=== PATIENT | female | born 1960 | race Caucasian/White ===

== ENCOUNTER 2017-10-10 12:22 | Emergency (ER) | payer OTHER, MEDICAID ==
--- NOTE | 2017-10-10 12:27 | ER Document Report ---
ED General - General Mode of Arrival: Ambulatory Information source: Patient <EULOGIO WHITMORE - Last Filed: 10/10/17 13:29> <YANNICK COOPER - Last Filed: 10/10/17 16:07> - General Stated Complaint: POSSIBLE SEIZURE Time Seen by Provider: 10/10/17 12:23 Notes: Patient is a 57 year old female with asthma, depression, sleep apnea presents to the emergency department via EMS complaining of a possible seizure. Patient states she was at a homeless [place] receiving food when there was too many people around her and she began to seize. She states she normally has seizures when she is stressed or hot further reporting her last seizure to be approximately 3 months ago when she was packing up to move to [place]. Patient denies any trouble breathing, nausea, vomiting or abdominal pain. EMS deny a postictal phase. Patient does not know her medications and is not on any treatments for nausea or her sleep apnea. (MYRANDAEULOGIO) - Related Data Allergies/Adverse Reactions: Penicillins Allergy (Verified 10/10/17 12:50) Past Medical History - General Information source: Patient, Emergency Med Personnel - Social History Smoking Status: Never Smoker Cigarette use (# per day): No Chew tobacco use (# tins/day): No Smoking Education Provided: No Frequency of alcohol use: None Family History: Reviewed & Not Pertinent Pulmonary Medical History: Reports: Hx Asthma, Hx Sleep Apnea Neurological Medical History: Reports: Hx Seizures Psychiatric Medical History: Reports: Hx Depression <EULOGIO WHITMORE - Last Filed: 10/10/17 13:29> Review of Systems - Review of Systems Constitutional: No symptoms reported EENT: No symptoms reported Cardiovascular: No symptoms reported Respiratory: No symptoms reported Gastrointestinal: No symptoms reported Genitourinary: No symptoms reported Female Genitourinary: No symptoms reported Musculoskeletal: No symptoms reported Skin: No symptoms reported Hematologic/Lymphatic: No symptoms reported Neurological/Psychological: See HPI, Seizure -: Yes All other systems reviewed and negative <EULOGIO WHITMORE - Last Filed: 10/10/17 13:29> Physical Exam <EULOGIO WHITMORE - Last Filed: 10/10/17 13:29> <YANNICK COOPER - Last Filed: 10/10/17 16:07> - Vital signs Vitals: Temp Pulse Resp BP Pulse Ox 97.8 F 85 17 132/81 H 94 10/10/17 12:22 10/10/17 12:22 10/10/17 12:22 10/10/17 12:22 10/10/17 12:22 - Notes Notes: GENERAL: Alert, interacts well. No acute distress. HEAD: Normocephalic, atraumatic. EYES: Pupils equal, round, and reactive to light. Extraocular movements intact. ENT: Oral mucosa moist, tongue midline. NECK: Full range of motion. Supple. Trachea midline. LUNGS: Clear to auscultation bilaterally, no wheezes, rales, or rhonchi. No respiratory distress. HEART: Regular rate and rhythm. No murmurs, gallops, or rubs. ABDOMEN: Soft, non-tender. Obese. Non-distended. Bowel sounds present in all 4 quadrants. EXTREMITIES: Moves all 4 extremities spontaneously. Radial pulses normal. NEUROLOGICAL: Alert and oriented x3. PSYCH: Infantile behavior and speech. SKIN: Warm, dry, normal turgor. No rashes or lesions noted. (EULOGIO WHITMORE) Course - Laboratory Result Diagrams: 10/10/17 12:40 10/10/17 12:40 <EULOGIO WHITMORE - Last Filed: 10/10/17 13:29> - Laboratory Result Diagrams: 10/10/17 12:40 10/10/17 12:40 <YANNICK COOPER - Last Filed: 10/10/17 16:07> - Vital Signs Vital signs: Temp Pulse Resp BP Pulse Ox 97.7 F 85 25 H 123/80 96 10/10/17 15:42 10/10/17 12:22 10/10/17 15:25 10/10/17 15:25 10/10/17 15:25 - Laboratory Laboratory results interpreted by me: 10/10/17 10/10/17 10/10/17 12:40 12:40 12:50 RDW 18.1 H Plt Count 464 H Creatine Kinase 23 L Urine Nitrite POSITIVE H Ur Leukocyte Esterase MODERATE H 10/10/17 14:43 RDW Plt Count Creatine Kinase Urine Nitrite POSITIVE H Ur Leukocyte Esterase TRACE H Discharge <EULOGIO WHITMORE - Last Filed: 10/10/17 13:29> <YANNICK COOPER - Last Filed: 10/10/17 16:07> - Discharge Clinical Impression: Seizure-like activity Urinary tract infection Qualifiers: Urinary tract infection type: site unspecified Hematuria presence: without hematuria Qualified Code(s): N39.0 - Urinary tract infection, site not specified Condition: Stable Disposition: HOME, SELF-CARE Additional Instructions: Urinary Tract Infection: Your evaluation indicates that you have a urinary tract infection. This is due to germs growing in the bladder. This is a common problem. This infection usually responds quickly to antibiotics. Your antibiotic should be taken exactly as prescribed. Drink plenty of fluids -- three to four quarts a day. Occasionally, a bladder anesthetic will be prescribed to help stop the feeling of urgency until the antibiotic has a chance to clear the infection. This may cause your urine to be dark orange. Certain urine infections require a culture. If the doctor obtained a culture, the results will be back in two days. You should call to see if a change in treatment is needed. A repeat urinalysis after you finish treatment is often recommended. The physician will let you know if further testing is required. Call the doctor if you develop fever, chills, flank pain, inability to urinate, or blood in the urine. You have had an episode of stress-induced seizure-like activity similar to what you had in the past. Your evaluation in the emergency room does show that you have a urinary tract infection. You should take the antibiotics as prescribed and drink plenty of fluids. Rest and try to avoid stressful situations. Follow-up with your doctor Friday if not feeling back to normal. RETURN TO THE EMERGENCY ROOM IF ANY NEW OR WORSENING SYMPTOMS. Prescriptions: Sulfamethoxazole/Trimethoprim [Septra-Ds 800-160 mg Tablet] 1 tab PO BID #10 tablet Scribe Attestation: 08/24/18 15:29 I personally performed the services described in the documentation, reviewed and edited the documentation which was dictated to the scribe in my presence, and it accurately records my words and actions. (YANNICK COOPER) Scribe Documentation - Scribe Written by Dwight:: Dwight Keller, 10/10/2017 12:35 acting as scribe for :: Zelalem <EULOGIO WHITMORE - Last Filed: 10/10/17 13:29>
[2017-10-10 12:51] LABS: ABSOLUTE BASOPHILS # (AUTO) 0.1 10^3/uL (0.0-0.2); ABSOLUTE LYMPHOCYTES (AUTO) 1.8 10^3/uL (0.5-4.7); ABSOLUTE MONOCYTES (AUTO) 0.4 10^3/uL (0.1-1.4); ABSOLUTE NEUT (AUTO) 7.8 10^3/uL (1.7-8.2); BASOPHILS % (AUTO) 0.7 % (0-2); EOSINOPHILS % (AUTO) 0.1 % (0-6); HEMATOCRIT 42.8 % (36.0-47.0); HEMOGLOBIN 14.3 g/dL (12.0-15.5); LYMPHOCYTES % (AUTO) 18.2 % (13-45); MEAN CORPUSCULAR HEMOGLOBIN 28.3 pg (27.0-33.4); MEAN CORPUSCULAR HGB CONC 33.4 g/dL (32.0-36.0); MEAN CORPUSCULAR VOLUME 85 fl (80-97); MONOCYTES % (AUTO) 3.7 % (3-13); PLATELET COUNT 464 10^3/uL (150-450); RED BLOOD COUNT 5.06 10^6/uL (3.72-5.28); RED CELL DISTRIBUTION WIDTH 18.1 % (11.5-14.0); SEGMENTED NEUTROPHILS % (AUTO) 77.3 % (42-78); TOTAL CELLS COUNTED % (AUTO) 100 %
--- NOTE | 2017-10-10 13:11 | RADIOLOGY REPORT (SQ) ---
EXAM DESCRIPTION: CHEST SINGLE VIEW COMPLETED DATE/TIME: 10/10/2017 12:59 pm REASON FOR STUDY: seizure COMPARISON: None. EXAM PARAMETERS: NUMBER OF VIEWS: One view. TECHNIQUE: Single frontal radiographic view of the chest acquired. RADIATION DOSE: NA LIMITATIONS: None. FINDINGS: LUNGS AND PLEURA: Low lung volumes. No infiltrate or effusion. MEDIASTINUM AND HILAR STRUCTURES: No masses. Contour normal. HEART AND VASCULAR STRUCTURES: The heart size is borderline. Accentuated by relatively low lung volu mes. BONES: No acute findings. HARDWARE: None in the chest. OTHER: No other significant finding. IMPRESSION: Borderline cardiomegaly. TECHNICAL DOCUMENTATION: JOB ID: [id number] [employer]- All Rights Reserved Reading location - IP/workstation name: [email or web address]
[2017-10-10 13:14] LABS: ALANINE AMINOTRANSFERASE 20 U/L (9-52); ALKALINE PHOSPHATASE 100 U/L (38-126); ANION GAP 14 (5-19); ASPARTATE AMINO TRANSFERASE 14 U/L (14-36); BILIRUBIN,DIRECT 0.3 mg/dL (0.0-0.4); BILIRUBIN,TOTAL 0.5 mg/dL (0.2-1.3); BLOOD UREA NITROGEN 11 mg/dL (7-20); CALCIUM 10.1 mg/dL (8.4-10.2); CARBON DIOXIDE 26 mmol/L (22-30); CHLORIDE 104 mmol/L (98-107); CREATINE KINASE 23 U/L (30-135); GLUCOSE 99 mg/dL (75-110); POTASSIUM 4.5 mmol/L (3.6-5.0); SODIUM 143.8 mmol/L (137-145); TOTAL PROTEIN 6.6 g/dL (6.3-8.2)
[2017-10-10 13:27] LABS: AMORPHOUS SEDIMENT,URINE TRACE /HPF; APPEARANCE,URINE CLOUDY; BILIRUBIN,URINE NEGATIVE (NEGATIVE); COLOR,URINE YELLOW; GLUCOSE, URINE NEGATIVE (NEGATIVE); KETONES,URINE NEGATIVE (NEGATIVE); LEUKOCYTE ESTERASE,URINE MODERATE (NEGATIVE); NITRITE,URINE POSITIVE (NEGATIVE); PROTEIN,URINE NEGATIVE (NEGATIVE); UROBILINOGEN,URINE NEGATIVE mg/dL (<2.0)
[2017-10-10 15:10] LABS: APPEARANCE,URINE SLIGHTLY-CLOUDY; BILIRUBIN,URINE NEGATIVE (NEGATIVE); COLOR,URINE YELLOW; GLUCOSE, URINE NEGATIVE (NEGATIVE); KETONES,URINE NEGATIVE (NEGATIVE); LEUKOCYTE ESTERASE,URINE TRACE (NEGATIVE); NITRITE,URINE POSITIVE (NEGATIVE); PROTEIN,URINE NEGATIVE (NEGATIVE); UROBILINOGEN,URINE NEGATIVE mg/dL (<2.0)
[2017-10-10 15:31] VITALS: BP 123/80
--- NOTE | 2017-10-13 10:35 | EKG REPORT ---
SEVERITY:- BORDERLINE ECG - SINUS RHYTHM BORDERLINE T ABNORMALITIES, ANT-LAT LEADS : Confirmed on behalf of: Melanie Evans 13-Oct-2017 10:35:24
== END 2017-10-10 15:42 | disposition home or self-care (01) ==
LOC: ER 12:22
DX: R29.818 Other symptoms and signs involving the nervous system (principal); N39.0 Urinary tract infection, site not specified; J45.909 Unspecified asthma, uncomplicated; Z88.0 Allergy status to penicillin
CPT/HCPCS: 36415; 51701; 71045; 80053; 81001; 82550; 85025; 87086; 87088; 87186; 93005; 93010; 99284

== ENCOUNTER 2018-10-23 16:00 | Emergency (ER) | payer MEDICARE, MEDICAID ==
[2018-10-23] MEDS ORDERED: TETANUS/DIPHTHERIA TOX-ADULT 0.5 ML SYR (>=7YO) IM ONE (16:28)
[2018-10-23] MEDS ORDERED: LIDOCAINE 1% INJ-PF (10 MG/ML) 30 ML SDV INJ ONE (16:29)
--- NOTE | 2018-10-23 16:47 | ER Document Report ---
ED Fall - General Chief Complaint: Fall Stated Complaint: FALL Primary Care Provider: JUAN WREN FNP-C [Primary Care Provider] - Follow up as needed - HPI Patient complains to provider of: Headache and scalp laceration. She also claims to have weakness in her leg Occurred: Just prior to arrival Where: Home, Indoors Context: Slipped Associated symptoms: denies: None, Lost consciousness, Dazed/confused, Seizure, Difficulty breathing, Difficulty walking, Became dizzy/fainted, Blood in stool, Other Location of injury/pain: Head. No: Abdomen, Ankle, Back, Breast, Buttocks, Chest, Elbow, Epigastric, Face, Finger, Flank, Foot, Hand, Hip, Mouth, Knee, Neck, Pelvic, Penis, Perineum, Rectum, Shoulder, Testicle, Thigh, Throat, Trunk, Vagina, Wrist, Upper extremity, Lower extremity, Other Quality of pain: Achy. denies: No pain, Burning, Cramping, Dull, Fullness, Pressure, Sharp, Stabbing, Throbbing, Other Severity: Mild Pain Level: 1 Prehospital interventions: No: C-collar, Backboard, PIOTR, IV, IO, BVM, Pb airway, Nasal airway, Oral airway, Intubation, Needle decompression, Splints, Wound care, Analgesia, Cardiac medications, CPR, Defibrillation, Other - Related data Allergies/Adverse Reactions: Penicillins Allergy (Verified 10/10/17 12:50) Past Medical History - Social History Smoking Status: Unknown if Ever Smoked Family History: Reviewed & Not Pertinent Patient has suicidal ideation: No Patient has homicidal ideation: No - Past Medical History Cardiac Medical History: Reports: Hx Hypertension Pulmonary Medical History: Reports: Hx Asthma, Hx Sleep Apnea Neurological Medical History: Reports: Hx Seizures Renal/ Medical History: Denies: Hx Peritoneal Dialysis Psychiatric Medical History: Reports: Hx Depression Review of Systems - Review of Systems Constitutional: No symptoms reported EENT: No symptoms reported Cardiovascular: No symptoms reported Respiratory: No symptoms reported Gastrointestinal: No symptoms reported Genitourinary: No symptoms reported Musculoskeletal: denies: No symptoms reported, See HPI, Back pain, Gout, Joint pain, Joint swelling, Muscle pain, Muscle stiffness, Neck pain, Deformity, Leg swelling, Ankle swelling, Other Skin: See HPI Neurological/Psychological: Headaches. denies: No symptoms reported, See HPI, Confusion, Dementia, Depression, Hallucinations, Anxiety, Homicidal ideation, Sensory change, Weakness, Gait changes, Loss of power, Paralysis, Seizure, Lost consciousness, Speech impairment, Numbness, Suicidal ideation, Tingling, Tremor, Other Physical Exam - Vital signs Vitals: Temp Pulse Resp BP Pulse Ox 97.4 F 88 16 146/84 H 96 10/23/18 16:15 10/23/18 16:15 10/23/18 16:15 10/23/18 16:15 10/23/18 16:15 Notes: PHYSICAL EXAMINATION: GENERAL: Well-appearing, well-nourished and in no acute distress. HEAD: l 1 cm linear laceration posterior scalp with surrounding scalp hematoma. Normocephalic. EYES: Pupils equal round and reactive to light, extraocular movements intact, sclera anicteric, conjunctiva are normal. ENT: nares patent, oropharynx clear without exudates. Moist mucous membranes. NECK: Normal range of motion, supple without lymphadenopathy no cervical thoracic lumbar or sacral spinous tenderness LUNGS: Breath sounds clear to auscultation bilaterally and equal. No wheezes rales or rhonchi. HEART: Regular rate and rhythm without murmurs ABDOMEN: Soft, nontender, normoactive bowel sounds. No guarding, no rebound. No masses appreciated. EXTREMITIES: Normal range of motion, no pitting or edema. No cyanosis. No pain to palpation on the extremities with full range of motion and normal musculoskeletal NEUROLOGICAL: No focal neurological deficits. Moves all extremities spon taneously and on command. PSYCH: Normal mood, normal affect. SKIN: Warm, Dry, normal turgor, no rashes or lesions noted. Course - Vital Signs Vital signs: Temp Pulse Resp BP Pulse Ox 97.4 F 88 16 146/84 H 96 10/23/18 16:15 10/23/18 16:15 10/23/18 16:15 10/23/18 16:15 10/23/18 16:15 - Diagnostic Test Radiology reviewed: Image reviewed, Reports reviewed Procedures - Laceration/Wound Repair Head Wound length (cm): 1.0 Wound's Depth, Shape: Linear Laceration pre-procedure: Sterile PPE donned, Betadine prep applied, Sterile drapes applied Anesthetic type: Other - patient declined Wound explored: Clean Irrigated w/ Saline (mLs): 10 Wound Repaired With: Talita - x3 Number of Sutures: 3 Layer Closure?: Yes - one Post-procedure wound care: Sterile dressing applied Discharge - Discharge Clinical Impression: Concussion, Scalp laceration Condition: Good Disposition: HOME, SELF-CARE Instructions: Antibiotic Ointment Protection ([facility]), Laceration Care ([facility]), Soap Cleansing ([facility]) Additional Instructions: Return if vomiting fever or having pus drainage from the wound mental status changes or condition worsens. Talita need to come out in 7 days at your doctor's office or back in the ER. Referrals: JUAN WREN, [employer]-[facility] [Primary Care Provider] - Follow up as needed
--- NOTE | 2018-10-23 16:55 | RADIOLOGY REPORT (SQ) ---
EXAM DESCRIPTION: CT HEAD WITHOUT COMPLETED DATE/TIME: 10/23/2018 4:41 pm REASON FOR STUDY: head injury COMPARISON: None. TECHNIQUE: Axial images acquired through the brain without intravenous contrast. Images reviewed wi th bone, brain and subdural windows. Additional sagittal and coronal reconstructions were generated. Images stored on PACS. All CT scanners at this facility use dose modulation, iterative reconstruction, and/or weight based d osing when appropriate to reduce radiation dose to as low as reasonably achievable (ALARA). [facility]: Dose Right [facility]: CareDose [facility]: Dose Right [facility]: Teradose 4D [facility]: Smart [employer] RADIATION DOSE: CT Rad equipment meets quality standard of care and radiation dose reduction techniq ues were employed. CTDIvol: 53.2 mGy. DLP: 1044 mGy-cm. mGy. LIMITATIONS: None. FINDINGS: VENTRICLES: Normal size and contour. CEREBRUM: No masses. No hemorrhage. No midline shift. No evidence for acute infarction. Few scatte red areas of low density in the white matter most likely chronic small vessel ischemic changes. CEREBELLUM: No masses. No hemorrhage. No alteration of density. No evidence for acute infarction. EXTRAAXIAL SPACES: No fluid collections. No masses. ORBITS AND GLOBE: No intra- or extraconal masses. Normal contour of globe without masses. CALVARIUM: No fracture. There are changes in the lateral wall of the right maxillary sinus suggestiv e of fibrous dysplasia. PARANASAL SINUSES: No fluid or mucosal thickening. SOFT TISSUES: No mass or hematoma. OTHER: No other significant finding. IMPRESSION: MILD CHRONIC MICROVASCULAR ISCHEMIA. NO ACUTE IMAGING FINDINGS IN THE BRAIN. 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 EVIDENCE OF ACUTE STROKE: NO. COMMENT: Quality ID # [id number]: Final reports with documentation of one or more dose reduction techniques (e.g., Automated exposure control, adjustment of the mA and/or kV according to patient size, use of iterative reconstruction technique) TECHNICAL DOCUMENTATION: JOB ID: [id number] [employer]- All Rights Reserved Reading location - IP/workstation name: [email or web address]
[2018-10-23 18:45] VITALS: BP 153/92
== END 2018-10-23 18:45 | disposition home or self-care (01) ==
LOC: ER 16:00
DX: S01.01XA Laceration without foreign body of scalp, initial encounter (principal); S06.0X9A Concussion with loss of consciousness of unspecified duration, initial encounter; W01.0XXA Fall on same level from slipping, tripping and stumbling without subsequent striking against object, initial encounter; Y92.009 Unspecified place in unspecified non-institutional (private) residence as the place of occurrence of the external cause; Z88.0 Allergy status to penicillin; Z23 Encounter for immunization
CPT/HCPCS: 70450; 90471; 90714; 99283

== ENCOUNTER 2020-01-19 08:07 | Day surgery (SDC) | payer MEDICARE, MEDICAID ==
[2020-01-19 09:30] LABS: INTERNATIONAL RATION (INR) 0.99; PROTHROMBIN TIME 13.3 SEC (11.4-15.4)
[2020-01-19 09:31] LABS: PARTIAL THROMBOPLASTIN TIME 31.9 SEC (23.5-35.8)
[2020-01-19 12:09] LABS: APPEARANCE ALL TUBES CLEAR; COLOR ALL TUBES COLORLESS; CSF TUBE NUMBER 3; VOLUME TUBE 1 1.9 CC; VOLUME TUBE 3 1.9 CC; VOLUME TUBE 4 2.2 CC
[2020-01-19 12:18] LABS: RED BLOOD CELL,CSF 0 /uL (0-10)
[2020-01-19 12:19] LABS: WHITE BLOOD CELL,CSF 2 /uL (0-5)
--- NOTE | 2020-01-19 13:05 | RADIOLOGY REPORT (SQ) ---
EXAM DESCRIPTION: LUMBAR PUNCTURE IMAGES COMPLETED DATE/TIME: 01/19/2020 10:38 am REASON FOR STUDY: BENIGN INTRACRANIAL HYPERTENSION G93.2 BENIGN INTRACRANIAL HYPERTENSION Z79.01 L MALOU TERM (CURRENT) USE OF ANTICOAGULANTS COMPARISON: None. FLUOROSCOPY TIME: 32 seconds 2 images saved to PACS. TECHNIQUE: Fluoroscopic guided lumbar puncture. LIMITATIONS: None. PROCEDURE: After written consent and assessment were obtained, the patient was brought into the fluo roscopy room and placed prone on the table. The patient's lower back was prepped in a sterile fashio n and an entry site was selected under live fluoroscopic guidance. The entry site was anesthetized wi th 1% lidocaine. A 20 gauge 15 cm needle was advanced through the skin and into the thecal sac at the level of L2-L3. An opening pressure was taken, which measured 29 cm of water. After approximately 8.5 ml was drained, a closing pressure was taken, which measured 18 cm of water. The needle was yumiko venessa and a sterile bandage was placed of the site. Specimens were sent to the lab for testing. A flu oroscopic spot image was saved to PACS confirming level access. FINDINGS: Clear CSF IMPRESSION: Lumbar puncture under fluoroscopy. No immediate complication. COMMENT: Patient medication list reviewed: Yes- Quality ID# [id number]:Eligible professional attests to doc umenting in the medical record they obtained, updated, or reviewed the patient's current medications. . Quality ID 145: Final reports for procedures using fluoroscopy that document radiation exposure caden sheela, or exposure time and number of fluorographic images (if radiation exposure indices are not avail able) TECHNICAL DOCUMENTATION: JOB ID: [id number] 2010 [employer]- All Rights Reserved Reading location - IP/workstation name: [email or web address] [email or web address]
[2020-01-19 17:25] VITALS: BP 132/84
[2020-01-20 15:36] LABS: ALBUMIN SERUM 3.4 g/dL (3.8-4.9); CSF IGG INDEX 0.4 (0.0-0.7); IGG SYNTHESIS RATE CSF -2.8 mg/day (-9.9 TO +3); IGG/ALBUMIN RATIO CSF 0.07 (0.00-0.25); IMMUNOGLOBULIN G CSF 2.4 mg/dL (0.0-8.6)
[2020-01-21 16:37] LABS: ALPHA-1-GLOBULIN 1 4.6 % (1.1-6.6); ALPHA-2-GLOBULIN 4.7 % (3.0-12.6); CSF ALBUMIN 62.7 % (56.8-76.4); PRE ALBUMIN 6.4 % (2.2-7.1); TOTAL PROTEIN CSF PE 41.5 mg/dL (0.0-44.0)
[2020-01-22 15:45] LABS: CSF PE GAMMA GLOBULIN 7.7 % (3.0-13.0); PROT ELEC MSPIKE Not Observed % (Not Observ)
== END 2020-01-19 14:40 | disposition home or self-care (01) ==
LOC: RAD 08:07
PROVIDERS: ATTEND Nurse Practitioner Family
DX: G40.89 Other seizures (principal); R26.9 Unspecified abnormalities of gait and mobility; Z79.899 Other long term (current) drug therapy; E11.9 Type 2 diabetes mellitus without complications; J45.909 Unspecified asthma, uncomplicated; E66.9 Obesity, unspecified; G93.2 Benign intracranial hypertension
CPT/HCPCS: 36415; 62328; 82784; 82945; 82962; 84157; 84166; 85610; 85730; 87070; 87205; 89050